=== PATIENT | male | born 1985 | race Caucasian/White ===

== ENCOUNTER 2019-12-02 09:40 | Emergency (ER) | payer OTHER ==
[2019-12-02] MEDS ORDERED: LORAZEPAM 1 MG TABLET PO ONE ×2 (10:19→11:43)
--- NOTE | 2019-12-02 10:22 | ER Document Report ---
ED Medical Screen (RME) - General Chief Complaint: Laceration Stated Complaint: FALL/LACERATION UNDER CHIN,HEAD PAIN Time Seen by Provider: 12/02/19 10:17 Mode of Arrival: Ambulatory Information source: Patient Notes: 34-year-old male patient presents the emergency department chief complaint of laceration under his chin. Patient reports he was trying to break up some dogs when he tripped and fell and hit his face. The dog did not bite him. 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 He does report that he has high anxiety and is requesting some anxiety medication prior to suturing. Exam: Approximately 4 cm laceration noted under patient's chin on the right side, appears to approximate well. No active bleeding noted. Laceration is deep. I have greeted and performed a rapid initial assessment of this patient. A comprehensive ED assessment and evaluation of the patient, analysis of test results and completion of the medical decision making process will be conducted by additional ED providers. I have specifically instructed the patient or family members with the patient to immediately return to any nursing staff should anything change in the patient's condition or with their chief complaint. TRAVEL OUTSIDE OF THE [place] IN LAST 30 DAYS: No - Related Data Home Medications: Zoloft. Valium. Tramadol Past Medical History - Social History Chew tobacco use (# tins/day): No Frequency of alcohol use: None Drug Abuse: None Physical Exam - Vital signs Vitals: Temp Pulse Resp BP Pulse Ox 98.6 F 112 H 16 127/90 H 98 12/02/19 10:12/02/19 10:12/02/19 10:12/02/19 10:12/02/19 10:08 Course - Vital Signs Vital signs: Temp Pulse Resp BP Pulse Ox 98.6 F 112 H 16 127/90 H 98 12/02/19 10:12/02/19 10:12/02/19 10:12/02/19 10:12/02/19 10:08
[2019-12-02] MEDS ORDERED: LIDOCAINE 1% INJ-PF (10 MG/ML) 30 ML SDV INJ ONE (11:14)
[2019-12-02] MEDS ORDERED: DIAZEPAM 5 MG TABLET PO ONE (11:14)
[2019-12-02] MEDS ORDERED: HYDROCODONE/ACETAMINOPHEN 5-325 MG (6 TAB/ER DISP) PO PRN (12:23)
--- NOTE | 2019-12-02 12:27 | ER Document Report ---
ED General - General Chief Complaint: Laceration Stated Complaint: FALL/LACERATION UNDER CHIN,HEAD PAIN Time Seen by Provider: 12/02/19 10:17 Mode of Arrival: Ambulatory Notes: 34-year-old male with history of anxiety presents for laceration to his chin that occurred prior to arrival. Patient states he was trying to catch a dog and slipped and fell hitting his chin against the concrete. Patient was not scratched or bitten by the dog. Patient's tetanus is up-to-date. Patient denies any LOC. TRAVEL OUTSIDE OF THE [place] IN LAST 30 DAYS: No - Related Data Home Medications: Zoloft. Valium. Tramadol Past Medical History - General Information source: Patient - Social History Smoking Status: Never Smoker Chew tobacco use (# tins/day): No Frequency of alcohol use: None Drug Abuse: None Family History: None Patient has suicidal ideation: No Patient has homicidal ideation: No Psychiatric Medical History: Reports: Hx Depression - PTSD, anxiety Past Surgical History: Reports: Hx Orthopedic Surgery - spinal fusion, ankle Review of Systems - Review of Systems Notes: Constitutional: Negative for fever. HENT: Negative for sore throat. Eyes: Negative for visual changes. Cardiovascular: Negative for chest pain. Respiratory: Negative for shortness of breath. Gastrointestinal: Negative for abdominal pain, vomiting or diarrhea. Genitourinary: Negative for dysuria. Musculoskeletal: Negative for back pain. Skin: Positive for laceration. Negative for rash. Neurological: Negative for headaches, weakness or numbness. 10 point ROS negative except as marked above and in HPI. Physical Exam - Vital signs Vitals: Temp Pulse Resp BP Pulse Ox 98.6 F 112 H 16 127/90 H 98 12/02/19 10:08 12/02/19 10:08 12/02/19 10:08 12/02/19 10:08 12/02/19 10:08 - Notes Notes: GENERAL: Well-appearing, well-nourished and in no acute distress. HEAD: Atraumatic, normocephalic. EYES: Extraocular movements intact, sclera anicteric, conjunctiva are normal. NECK: Normal range of motion, supple without lymphadenopathy or JVD. EXTREMITIES: Normal range of motion, no pitting or edema. No clubbing or cyanosis. NEUROLOGICAL: Cranial nerves II through XII grossly intact. Normal speech, normal gait. PSYCH: Normal mood, normal affect. SKIN: Approx 3 cm V shaped laceration under right chin. Warm, Dry, normal turgor, no rashes or lesions noted. Course - Re-evaluation Re-evalutation: 12/02/19 13:44 Linear flap laceration to chin. #11 4-0 prolene sutures placed. Pt was also given Ativan prior due to anxiety. Pt tolerated procedure well. Strict return precautions given. Pt to return to or ER in 7-10 days for suture removal. Pt voices understanding and agrees with plan of care. - Vital Signs Vital signs: Temp Pulse Resp BP Pulse Ox 98.3 F 84 16 128/86 H 97 12/02/19 12:42 12/02/19 12:42 12/02/19 12:42 12/02/19 12:42 12/02/19 12:42 Procedures - Laceration/Wound Repair Right Face Wound length (cm): 3 Wound's Depth, Shape: Linear, Flap - V shaped Laceration pre-procedure: Shur-Clens applied Anesthetic type: 1% Lidocaine Volume Anesthetic (mLs): 10 Wound explored: Clean Irrigated w/ Saline (mLs): 20 Wound Repaired With: Sutures Suture Size/Type: 4:0, Prolene Number of Sutures: 11 Complications: No Notes: 12/02/19 13:44 On right chin. Pt tolerated procedure well. Discharge - Discharge Clinical Impression: Laceration of chin without complication Qualifiers: Encounter type: initial encounter Qualified Code(s): S01.81XA - Laceration without foreign body of other part of head, initial encounter Condition: Stable Disposition: HOME, SELF-CARE Instructions: Laceration Care ([facility]), Soap Cleansing ([facility]) Additional Instructions: Please watch for any signs of infection, which include redness to area, pus drainage, increased swelling, increased pain to area. May allow soap and water to wash over sutures but do not scrub. May put bacitracin or Neosporin on area but do not put after third day as it will keep it from healing. Return to ER or urgent care in 7 to 10 days for suture removal. Return to ER for any worsening symptoms, including fever, signs of infection, increased pain, nausea/vomiting, abdominal pain, chest pain, shortness of breath, or any other symptoms that are concerning to you. Forms: Special Work Note
[2019-12-02 12:45] VITALS: BP 128/86
== END 2019-12-02 12:51 | disposition home or self-care (01) ==
LOC: ER 09:40
DX: S01.81XA Laceration without foreign body of other part of head, initial encounter (principal); W01.0XXA Fall on same level from slipping, tripping and stumbling without subsequent striking against object, initial encounter
CPT/HCPCS: 99282; 12013; J3490

== ENCOUNTER 2019-12-12 10:33 | Emergency (ER) | payer OTHER ==
--- NOTE | 2019-12-12 10:41 | ER Document Report ---
ED Suture/Wound Recheck - General Chief Complaint: Suture Removal Stated Complaint: SUTURE REMOVAL Time Seen by Provider: 12/12/19 10:41 Mode of Arrival: Ambulatory Information source: Patient Notes: 34-year-old male presented to ED for removal of sutures from his chin. He states he cut himself on a propane tank in the garage. States he is having a level 3 out of 5 pain at this time. No drainage minimal redness at the site. TRAVEL OUTSIDE OF THE [place] IN LAST 30 DAYS: No - HPI Previous ED treatment: Laceration repair Quality of pain: Achy Severity: Moderate Pain Level: 3 Context: Injury Symptoms since procedure: Pain, Redness. denies: Drainage, Fever, Numbness, Red streaks, Swelling, Weakness Exacerbated by: Other - Moving jaw Relieved by: Denies - Related Data Allergies/Adverse Reactions: No Known Allergies Allergy (Verified 12/12/19 10:40) Past Medical History - General Information source: Patient - Social History Smoking Status: Never Smoker Frequency of alcohol use: None Drug Abuse: None Occupation: Marine Family History: None Patient has suicidal ideation: No Patient has homicidal ideation: No - Past Medical History Cardiac Medical History: Reports: None Pulmonary Medical History: Reports: None EENT Medical History: Reports: None Neurological Medical History: Reports: None Endocrine Medical History: Reports: None Renal/ Medical History: Reports: None Malignancy Medical History: Reports None GI Medical History: Reports: None Musculoskeletal Medical History: Reports Hx Musculoskeletal Trauma Skin Medical History: Reports None Psychiatric Medical History: Reports: Hx Depression - PTSD, anxiety Traumatic Medical History: Reports: None Infectious Medical History: Reports: None Past Surgical History: Reports: Hx Orthopedic Surgery - spinal fusion, ankle - Immunizations Immunizations up to date: Yes Hx Diphtheria, Pertussis, Tetanus Vaccination: Yes Review of Systems - Review of Systems Constitutional: No symptoms reported EENT: No symptoms reported Cardiovascular: No symptoms reported Respiratory: No symptoms reported Gastrointestinal: No symptoms reported Genitourinary: No symptoms reported Male Genitourinary: No symptoms reported Musculoskeletal: No symptoms reported Skin: No symptoms reported Hematologic/Lymphatic: No symptoms reported Neurological/Psychological: No symptoms reported -: Yes All other systems reviewed and negative Physical Exam - Vital signs Vitals: Temp Pulse Resp BP Pulse Ox 98.0 F 96 18 158/99 H 95 12/12/19 10:38 12/12/19 10:38 12/12/19 10:38 12/12/19 10:38 12/12/19 10:38 Interpretation: Normal - General General appearance: Appears well, Alert - HEENT Head: Normocephalic, Atraumatic Eyes: Normal Pupils: PERRL Ears: Normal External canal: Normal Tympanic membrane: Normal Sinus: Normal Nasal: Normal Mouth/Lips: Normal Mucous membranes: Normal Pharynx: Normal Neck: Other - Suture removal to the right lower jaw - Respiratory Respiratory status: No respiratory distress Chest status: Nontender Breath sounds: Normal Chest palpation: Normal - Cardiovascular Rhythm: Regular Heart sounds: Normal auscultation Murmur: No - Abdominal Inspection: Normal Distension: No distension Bowel sounds: Normal Tenderness: Nontender Organomegaly: No organomegaly - Back Back: Normal, Nontender - Extremities General upper extremity: Normal inspection, Nontender, Normal color, Normal ROM, Normal temperature General lower extremity: Normal inspection, Nontender, Normal color, Normal ROM, Normal temperature, Normal weight bearing. No: Nidhi's sign - Neurological Neuro grossly intact: Yes Cognition: Normal Orientation: AAOx4 Reid Coma Scale Eye Opening: Spontaneous Reid Coma Scale Verbal: Oriented [place] Coma Scale Motor: Obeys Commands Reid Coma Scale Total: 15 Speech: Normal Motor strength normal: LUE, RUE, LLE, RLE Sensory: Normal - Psychological Associated symptoms: Normal affect, Normal mood - Skin Skin Temperature: Warm Skin Moisture: Dry Skin Color: Normal Location of irregularity: Face - Laceration healing small area still needs healing time. Sutures were removed and Steri-Strips are placed to allow further healing to the area Course - Vital Signs Vital signs: Temp Pulse Resp BP Pulse Ox 98.0 F 96 18 158/99 H 95 12/12/19 10:38 12/12/19 10:38 12/12/19 10:38 12/12/19 10:38 12/12/19 10:38 Procedures - Laceration/Wound Repair Right Face Time completed: 10:53 Wound length (cm): 2 Wound's Depth, Shape: Linear, Other - Sutures removed and Steri-Strips applied to small area Laceration pre-procedure: Other - Benzoin Anesthetic type: Other - None Volume Anesthetic (mLs): 0 Wound explored: Clean Wound Repaired With: Steri-strips Number of Sutures: 0 Discharge - Discharge Clinical Impression: Visit for suture removal Condition: Stable Disposition: HOME, SELF-CARE Instructions: Care of Steri-Strip Closure (H), Suture Removal, Follow-Up Care ([facility]) Forms: Elevated Blood Pressure, Special Work Note, Return to Work
[2019-12-12 10:45] VITALS: BP 158/99
== END 2019-12-12 11:00 | disposition home or self-care (01) ==
LOC: ER 10:33
DX: S01.81XD Laceration without foreign body of other part of head, subsequent encounter (principal); W45.8XXD Other foreign body or object entering through skin, subsequent encounter
CPT/HCPCS: 99281